=== PATIENT | male | born 1975 | race Two or more races ===

== ENCOUNTER 2017-11-02 15:29 | Emergency (ER) | payer MEDICAID, OTHER ==
[~2017-11-02] VITALS: Ht 162.6 cm; Wt 68.0 kg
[2017-11-02] MEDS ORDERED: SODIUM CHLORIDE 0.9% 1,000 ML IV ONE (16:13)
[2017-11-02] MEDS ORDERED: TETANUS-DIPTH-ACEL PERTUSSIS 0.5ML SYRG IM ONE (16:15)
[2017-11-02] MEDS ORDERED: LORazepam 2MG/ML-1ML VIAL IV ONE (16:15)
[2017-11-02 17:30] LABS: Basophils # (auto) 0 uL; Basophils % (auto) 0.2 % (0.0-2.0); Eosinophils # (auto) 0 uL; Eosinophils % (auto) 0.1 % (0.0-7.0); Hematocrit 49.6 % (41.0-53.0); Hemoglobin 17.2 g/dL (13.5-17.5); Lymphocytes # (auto) 0.5 uL; Mean Corpuscular Hgb Conc. 34.6 g/dL (32.0-36.0); Mean Corpuscular Volume 95.2 fL (80.0-100.0); Monocytes # (auto) 0.7 uL; Monocytes % (auto) 7.3 % (0.0-12.0); Neutrophils # (auto) 7.9 uL; Neutrophils % (auto) 87.4 % (37.0-80.0); Nucleated Red Blood Cells % 0.3 %; Red Blood Cells 5.21 10^6/uL (4.5-5.90); Red Cell Distribution Width 12.7 % (11.8-14.3); White Blood Cell 9.1 10^3/uL (4.4-10.8)
[2017-11-02 17:37] LABS: Platelet Count (auto) 100 10^3/uL (140-450)
[2017-11-02 17:40] LABS: Albumin 3.6 g/dL (3.4-5.0); Calcium 8.5 mg/dL (8.5-10.1); Magnesium 2.5 mg/dL (1.6-2.6); Potassium 3.5 mmol/L (3.5-5.1)
[2017-11-02 17:41] LABS: Bilirubin, Total 1.3 mg/dL (0.2-1.0); Total Protein 8.1 g/dL (6.4-8.2)
[2017-11-02] MEDS ORDERED: LEVETIRACETAM INJ 1,000 MG in D5W 5% 100 ML IV ONE (18:00)
[2017-11-02 20:45] VITALS: BP 138/74
== END 2017-11-02 20:49 | disposition home or self-care (01) ==
LOC: ER 15:29
DX: G40.909 Epilepsy, unspecified, not intractable, without status epilepticus (principal); D69.6 Thrombocytopenia, unspecified; R94.5 Abnormal results of liver function studies
CPT/HCPCS: 36415; 70450; 71046; 80053; 83735; 85025; 90471; 90715; 94761; 96361; 96365; 96375; 99285; J2060